=== PATIENT | female | born 1965 | race Caucasian/White ===

== ENCOUNTER 2019-07-02 13:45 | Emergency (ER) | payer BC, OTHER ==
[2019-07-02 14:12] VITALS: TEMP 98.2; BMI 28.5
--- NOTE | 2019-07-02 14:37 | PDOC ---
Attending Attestation - Resident Resident Name: HernandezLiv cisse - ED Attending Attestation I have performed the following: I have examined & evaluated the patient, The case was reviewed & discussed with the resident, I agree w/resident's findings & plan, Exceptions are as noted - HPI HPI: 07/02/19 14:35 54 yo F with h/o HLD here wtih c/o chest pain starting earlier this am while doing laundry. was lifting clothes into laundry and developed chest pain. no sob. no nausea, no vomiting no f/c no cough. no h/o pe or dvt. no leg swelling. - Physicial Exam PE: 07/02/19 14:37 awake alert CTAB no wheezing no crackles. heart rrr no mrg abd soft nt nd ext wwp. no edema. no calf tenderness. skin warm and dry. alert oriented x 3. symetric radial dp pulses. - Medical Decision Making 07/02/19 14:40 54 yo F h/o HLD here with c/o chest pain. differential acs, msk strain, infection , plan ekg labs trop . 07/02/19 15:41 pt labs normal ekg unremarkable. cxr normal. has asa at home. currently pain has resolved. offered serial troponins and observation pt declined. 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
--- NOTE | 2019-07-02 15:08 | PDOC ---
History of Present Illness - General Chief Complaint: Chest Pain Stated Complaint: CHEST PAIN,DIZZY Time Seen by Provider: 07/02/19 13:48 - History of Present Illness Initial Comments: 07/02/19 15:06 54 yo F PMH HLD, rheumatoid arthritis (not on meds), presenting with chest pain. Reports that she was folding laundry this morning when she developed sharp pain across her chest, 7/10, down left arm, and up into her neck, without associated N/V or SOB. Took two regular strength aspirin. Denies similar symptoms in the past. No smoking history. Past History - Past Medical History Allergies/Adverse Reactions: Allergies Allergy/AdvReac Type Severity Reaction Status Date / Time latex Allergy Verified 07/02/19 13:46 Sulfa (Sulfonamide Allergy Verified 07/02/19 13:46 Antibiotics) Home Medications: Ambulatory Orders Aspirin [ASA -] 650 mg PO ONCE PRN 07/02/19 Simvastatin 20 mg PO HS 07/02/19 Asthma: Yes COPD: No Hypercholesterolemia: Yes - Psycho Social/Smoking Cessation Hx Smoking History: Former smoker Have you smoked in the past 12 months: No Number of Cigarettes Smoked Daily: 0 If you are a former smoker, when did you quit?: 30 YEARS AGO Information on smoking cessation initiated: No Hx Alcohol Use: Yes (rare) Drug/Substance Use Hx: No Review of Systems - Review of Systems Comments:: 07/02/19 16:45 GENERAL/CONSTITUTIONAL: denies fever, chills, diaphoresis, generalized weakness , malaise, loss of appetite, weight change HEAD, EYES, EARS, NOSE AND THROAT: denies rhinorrhea, nasal congestion, throat pain, throat swelling, difficulty swallowing, mouth swelling, ear pain, eye pain , visual changes NEUROLOGIC: denies headache, focal weakness or paresthesias, dizziness, unsteady gait, seizure, mental status changes, bladder or bowel incontinence CARDIOVASCULAR: endorses chest pain. Denies syncope, palpitations, irregular heart rate, lightheadedness, peripheral edema RESPIRATORY: denies cough, shortness of breath, dyspnea with exertion, orthopnea , wheezing, stridor, hemoptysis GASTROINTESTINAL: denies abdominal pain, abdominal distension, nausea, vomiting , diarrhea, constipation, melena, hematochezia GENITOURINARY: denies dysuria, frequency, urgency, hesitancy, hematuria, flank pain, genital pain MUSCULOSKELETAL: denies myalgia, arthralgia, joint swelling, back pain, neck pain SKIN: denies rash, itching, pallor HEMATOLOGIC/IMMUNOLOGIC: denies easy bleeding, easy bruising, lymphadenopathy, frequent infections ENDOCRINE: denies unexplained weight gain, unexplained weight loss, heat intolerance, cold intolerance PSYCHIATRIC: denies anxiety, depression, suicidal or homicidal ideation, hallucinations *Physical Exam - Vital Signs Last Vital Signs Temp Pulse Resp BP Pulse Ox 98.2 F 72 20 128/82 98 07/02/19 13:46 07/02/19 13:46 07/02/19 13:46 07/02/19 13:46 07/02/19 13:46 - Physical Exam 07/02/19 16:45 GENERAL: Awake, alert, and fully oriented, in no acute distress. HEAD: Normal with no signs of trauma. EYES: Pupils equal, round and reactive to light, extraocular movements intact, sclera anicteric, conjunctiva clear. No lid lag. EARS, NOSE, THROAT: Ears normal, nares patent, oropharynx clear without exudates. NECK: Normal range of motion, supple without lymphadenopathy or JVD LUNGS: Breath sounds equal, clear to auscultation bilaterally. No wheezes, and no crackles. No accessory muscle use. HEART: Regular rate and rhythm, normal S1 and S2 without murmur, rub or gallop. ABDOMEN: Soft, nontender, non-distended, normoactive bowel sounds, negative guarding, negative rebound MUSCULOSKELETAL: Normal range of motion at all joints. No bony deformities or tenderness. No CVA tenderness. UPPER EXTREMITIES: 2+ pulses, warm, well-perfused. No cyanosis. No clubbing. Cap refill <2 seconds. No peripheral edema. LOWER EXTREMITIES: 2+ pulses, warm, well-perfused. No calf tenderness. No peripheral edema. NEUROLOGICAL: Cranial nerves II-XII intact. Normal speech. Normal gait. PSYCHIATRIC: Cooperative. Good eye contact. Appropriate mood and affect. SKIN: Warm, dry, normal turgor, no rashes or lesions noted. Heart Score/ECG Review - History History: Moderately suspicious - Electrocardiogram EKG: Normal - Age Age: 45-65 - Risk Factors Risk Factors Heart Score: Yes Hx Hypercholesterolemia Based on the list above the patient has:: 1-2 risk factors - Troponin Troponin: </= normal limit - Score Heart Score - Total: 3 ED Treatment Course - LABORATORY CBC & Chemistry Diagram: 07/02/19 14:51 07/02/19 14:51 - RADIOLOGY Radiology Studies Ordered: Category Date Time Status CXRPORT [CHEST X-RAY PORTABLE*] [RAD] Stat Radiology 07/02/19 14:25 Taken Medical Decision Making - Medical Decision Making 07/02/19 15:08 R/o ACS EKG normal sinus at 72 bpm. 07/02/19 15:25 CXR without acute abnormality. 07/02/19 15:37 Labs wnl. Patient states that she feels 100% improved and declines to stay for second troponin. Will dc with cardiology followup. Discharge - Discharge Information Problems reviewed: Yes Clinical Impression/Diagnosis: Chest pain Condition: Stable Disposition: HOME - Admission No - Follow up/Referral Referrals: Boni Castano MD [Staff Physician] - - Patient Discharge Instructions Patient Printed Discharge Instructions: DI for Atypical Chest Pain Additional Instructions: You were seen with chest pain. Your EKG and chest X ray did not show any abnormalities, and your labs were unremarkable. You declined to stay for serial troponin checking. We have recommended you to follow with cardiology; the number is included in this paperwork. Follow up with your primary care doctor within one week. Return to the ED if you develop worsening symptoms. - Post Discharge Activity
[2019-07-02 15:09] LABS: BASO % 0.6 % (0-2.0); EOS % 3.3 % (0-4.5); HEMATOCRIT 42.3 % (32.4-45.2); HEMOGLOBIN 14.6 GM/dl (10.7-15.3); LYMPH % 24.8 % (8-40); MCH 30.8 pg (25.7-33.7); MCHC 34.6 g/dl (32.0-36.0); MEAN CELL VOLUME 88.9 fl (80-96); MEAN PLT VOLUME 8.9 fl (7.5-11.1); MONO % 5.3 % (3.8-10.2); PLATELET COUNT 205 K/MM3 (134-434); RBC 4.75 M/mm3 (3.60-5.2); WHITE BLOOD COUNT 7.6 K/mm3 (4.0-10.8)
[2019-07-02 15:11] LABS: ALBUMIN 3.9 g/dl (3.4-5.0); BILIRUBIN,TOTAL 0.5 mg/dl (0.2-1); CREATININE 0.7 mg/dl (0.55-1.3); POTASSIUM 4.1 mmol/L (3.5-5.1); TOT PROT 6.9 g/dl (6.4-8.2)
[2019-07-02 16:12] VITALS: BP 121/88; PULSE 79
--- NOTE | 2019-07-03 11:29 | EKG ---
Test Reason : Blood Pressure : / mmHG Vent. Rate : 072 BPM Atrial Rate : 072 BPM P-R Int : 144 ms QRS Dur : 090 ms QT Int : 392 ms P-R-T Axes : 035 020 026 degrees QTc Int : 429 ms NORMAL SINUS RHYTHM NORMAL ECG NO PREVIOUS ECGS AVAILABLE Confirmed by MD SHEREE, OANH ([id number]) on 07/03/2019 11:29:22 AM Referred By: RANJANA FARRELL Confirmed By:OANH BENTLEY MD
== END 2019-07-02 16:13 | disposition home or self-care (01) ==
LOC: FER 13:45
PROC: 3E0333Z Introduction of Anti-inflammatory into Peripheral Vein, Percutaneous Approach (ICD-10-PCS; principal; 2019-07-02)
DX: E78.00 Pure hypercholesterolemia, unspecified (principal); Z88.0 Allergy status to penicillin
CPT/HCPCS: 36415; 71045-TC-FY; 80053; 82550; 84484; 85025; 93005; 99285-25